=== PATIENT | female | born 1945 | race Two or more races ===

== ENCOUNTER 2018-12-03 05:06 | Day surgery (SDC) | payer OTHER ==
[~2018-12-03 05:06] MED LIST: ASA81 MG PO; FENOFIBRATE54 MG PO; GLIPIZIDE10 MG PO; LIPITOR20 MG PO; NEURONTIN300 MG PO; OMEPRAZOLE20 M1 PO; OXYBUTYNIN CHLO10 MG PO; PENTOXIFYLLINE400 MG PO; SINGULAIR10 MG PO; VASOTEC5 MG PO
[2018-12-03] MEDS ORDERED: ULTRACET PO (10:58)
[2018-12-03] MEDS ORDERED: MACROBID 100 M100 MG PO (10:58)
== END 2018-12-03 15:20 | disposition home or self-care (01) ==
LOC: CIR.AMB 05:06
DX: N81.6 Rectocele (principal); N81.5 Vaginal enterocele